=== PATIENT | female | born 1955 | race Caucasian/White ===

== ENCOUNTER 2021-03-29 16:30 | Inpatient (IN) | payer OTHER ==
[2021-03-29 17:44] VITALS: BMI 37.8
[2021-03-29] MEDS ORDERED: Heparin 25,000 units/D5W 500 ML IV SCH (19:00)
[2021-03-29] MEDS ORDERED: Nitroglycerin 0.4 MG TAB (25 Tab Bottle) SL PRN (19:53)
[2021-03-29] MEDS ORDERED: Heparin 10,000 UNITS/ 10 ML VIAL SLOW IVP SCH (20:15)
[2021-03-29] MEDS ORDERED: Heparin 25,000 units/D5W 500 ML IVPB SCH (20:15)
[2021-03-29 20:38] LABS: Hemoglobin 12.6 g/dL (12.0-15.5); Platelet Count 218 10x3/uL (150-450)
[2021-03-29 21:12] LABS: Troponin I 0.564 ng/mL (< 0.028)
[2021-03-29] MEDS ORDERED: [UNRECOGNIZED DRUG - OTHER] TOP SCH (21:15)
[2021-03-29] MEDS ORDERED: ESTRADIOL TOP SCH (21:15)
[2021-03-29] MEDS: Metoprolol Tartrate 25 MG TAB PO SCH (21:38)
[2021-03-29] MEDS: Nitroglycerin 2% Ointment 1 INCH/1 GM Packet TOP SCH (21:38)
[2021-03-29] MEDS: Atorvastatin Calcium 40 MG TAB PO SCH (21:38)
[2021-03-29] MEDS: Acetaminophen 325 MG TAB PO PRN (23:24)
[2021-03-29 23:49] LABS: Critical Call Chem Troponin I RESULT DECREASING; Troponin I 0.455 ng/mL (< 0.028)
[2021-03-30 01:50] LABS: SARS-CoV-2 PCR by NAA Not Detected (NotDetected)
[2021-03-30 02:59] LABS: #Eosinphils 0.2 10x3/uL (0.0-0.5); #Monocytes 0.8 10x3/uL (0.0-1.1); #Neutrophils 4.9 10x3/uL (1.5-8.4); %Basophils 0.4 % (0.0-2.0); %Eosinophils 1.9 % (0.0-6.0); %Lymphocytes 26.3 % (18.0-47.0); %Monocytes 9.4 % (0.0-10.0); %Neutrophils 61.6 % (40.0-75.0); Hemoglobin 11.9 g/dL (12.0-15.5); Mean Corpuscular HGB CONC 31.9 g/dL (32.0-36.0); Mean Corpuscular Hemoglobin 28.5 pg (27.0-33.0); Mean Corpuscular Volume 89.4 fl (81.6-98.3); Mean Platelet Volume 10.7 fl (7.4-10.4); Platelet Count 217 10x3/uL (150-450); RBC Distribution Width 13.2 % (11.5-14.5); Red Blood Cell (RBC) Count 4.17 10x6/uL (3.90-5.03)
[2021-03-30 03:16] LABS: Anion Gap 15 mmol/L (10-20); BUN (Urea Nitrogen) 10 mg/dL (9.8-20.1); Calc. Creatinine Clearance 130 mL/min (70-130); Calcium 8.8 mg/dL (7.8-10.44); Carbon Dioxide 25 mmol/L (23-31); Cardiac Risk 3.3 (Less than 4.5); Chloride 104 mmol/L (98-107); Cholesterol 126 mg/dl (< 200 Desired); Glucose 132 mg/dL (80-115); HDL Cholesterol 38 mg/dL (>60 Neg Risk); LDL Cholesterol, Calculated 42 mg/dL; Potassium 3.5 mmol/L (3.5-5.1); Sodium 140 mmol/L (136-145); Triglycerides 230 mg/dL (Less than 150)
[2021-03-30 03:16] LABS: Hemoglobin A1c 5.6 % (4.0-6.0)
[2021-03-30] MEDS ORDERED: Heparin 10,000 UNITS/ 10 ML VIAL ONE ×2 (04:32→06:06)
[2021-03-30] MEDS ORDERED: Magnesium Sulfate/D5W 1 GM/100 ML BAG IVPB SCH (05:30)
[2021-03-30] MEDS: Nitroglycerin 2% Ointment 1 INCH/1 GM Packet TOP SCH (05:35)
[2021-03-30] MEDS ORDERED: Aspirin Chewable 81 MG TAB ONE (05:47)
[2021-03-30] MEDS ORDERED: Nitroglycerin 50 MG/250 ML BOT 250 ML ONE (06:06)
[2021-03-30] MEDS ORDERED: Verapamil 5 MG/2 ML VIAL ONE (06:06)
[2021-03-30] MEDS ORDERED: Adenosine 6 MG/2 ML VIAL ONE (06:07)
[2021-03-30] MEDS ORDERED: Bivalirudin 250 MG VIAL ONE (06:07)
[2021-03-30] MEDS ORDERED: Lidocaine 1% PF 5 ML VIAL ONE (06:08)
[2021-03-30] MEDS ORDERED: Midazolam HCl 5 mg/5 ml Vial ONE (06:08)
[2021-03-30] MEDS ORDERED: Sodium Chloride 0.9% 1,000 ML ONE (06:08)
[2021-03-30] MEDS ORDERED: Fentanyl 100 MCG/2 ML VIAL ONE (06:08)
[2021-03-30] MEDS ORDERED: Cholecalciferol 1,000 UNITS (25 MCG) TAB PO SCH ×2 (06:15→09:00)
[2021-03-30] MEDS ORDERED: Aspirin 81 mg Enteric Coated Tablet PO SCH ×2 (06:15→09:00)
[2021-03-30] MEDS ORDERED: Multivitamin W/ Minerals 1 TAB PO SCH ×2 (06:15→09:00)
[2021-03-30] MEDS ORDERED: Ubidecarenone 50 MG CAP PO SCH ×2 (06:15→09:00)
[2021-03-30] MEDS ORDERED: Citalopram 20 MG TAB PO SCH ×2 (06:15→09:00)
[2021-03-30] MEDS ORDERED: busPIRone HCl 5 MG TAB PO SCH ×2 (06:15→09:00)
[2021-03-30] MEDS ORDERED: Potassium Chloride 10 MEQ in Premix Bag 1 BAG IVPB SCH (06:30)
[2021-03-30] MEDS ORDERED: TICAGRELOR 90 MG TABLET ONE (07:29)
[2021-03-30] MEDS ORDERED: metFORMIN XR 500 MG TAB PO SCH ×3 (08:00→18:00)
[2021-03-30] MEDS ORDERED: Sodium Chloride 0.9% 1,000 ML IV SCH (08:15)
[2021-03-30] MEDS ORDERED: Pioglitazone HCl 15 MG TAB PO SCH ×2 (09:00→13:30)
[2021-03-30] MEDS: Metoprolol Tartrate 25 MG TAB PO SCH ×2 (12:38→20:11)
[2021-03-30] MEDS: TICAGRELOR 90 MG TABLET PO SCH ×2 (12:38→20:12)
[2021-03-30] MEDS: Potassium Chloride 10 MEQ in Premix Bag 1 BAG IVPB SCH ×3 (12:58→17:02)
[2021-03-30] MEDS: Atorvastatin Calcium 40 MG TAB PO SCH (20:11)
[2021-03-30] MEDS: Acetaminophen 325 MG TAB PO PRN (20:12)
[2021-03-31 05:03] LABS: #Eosinphils 0.1 10x3/uL (0.0-0.5); #Monocytes 0.7 10x3/uL (0.0-1.1); #Neutrophils 6.3 10x3/uL (1.5-8.4); %Basophils 0.3 % (0.0-2.0); %Eosinophils 1.5 % (0.0-6.0); %Monocytes 8.2 % (0.0-10.0); %Neutrophils 79.9 % (40.0-75.0); Hemoglobin 12.5 g/dL (12.0-15.5); Mean Corpuscular HGB CONC 31.9 g/dL (32.0-36.0); Mean Corpuscular Hemoglobin 28.4 pg (27.0-33.0); Mean Corpuscular Volume 89.1 fl (81.6-98.3); Mean Platelet Volume 10.7 fl (7.4-10.4); Platelet Count 196 10x3/uL (150-450); RBC Distribution Width 13.2 % (11.5-14.5); White Blood Cell (WBC) Count 7.9 10x3/uL (3.5-10.5)
[2021-03-31 05:29] LABS: Anion Gap 14 mmol/L (10-20); BUN (Urea Nitrogen) 6 mg/dL (9.8-20.1); Calc. Creatinine Clearance 130 mL/min (70-130); Calcium 8.6 mg/dL (7.8-10.44); Carbon Dioxide 23 mmol/L (23-31); Chloride 106 mmol/L (98-107); Glucose 100 mg/dL (80-115); Magnesium 1.8 mg/dL (1.6-2.6); Potassium 4.1 mmol/L (3.5-5.1); Sodium 139 mmol/L (136-145)
[2021-03-31] MEDS ORDERED: metFORMIN XR 500 MG TAB PO SCH (08:00)
[2021-03-31] MEDS: TICAGRELOR 90 MG TABLET PO SCH (08:47)
[2021-03-31] MEDS: Metoprolol Tartrate 25 MG TAB PO SCH (08:48)
[2021-03-31 08:54] VITALS: BP 96/44; TEMP 98.7
[2021-03-31] MEDS ORDERED: Citalopram 20 MG TAB PO SCH (09:00)
[2021-03-31] MEDS ORDERED: Aspirin 81 mg Enteric Coated Tablet PO SCH (09:00)
[2021-03-31] MEDS ORDERED: Pioglitazone HCl 15 MG TAB PO SCH (09:00)
[2021-03-31] MEDS ORDERED: Multivitamin W/ Minerals 1 TAB PO SCH (09:00)
[2021-03-31] MEDS ORDERED: busPIRone HCl 5 MG TAB PO SCH (09:00)
[2021-03-31] MEDS ORDERED: Cholecalciferol 1,000 UNITS (25 MCG) TAB PO SCH (09:00)
[2021-03-31] MEDS ORDERED: Ubidecarenone 50 MG CAP PO SCH (09:00)
== END 2021-03-31 13:33 | disposition home or self-care (01) | DRG 247 ==
LOC: CSHTELE 16:30
PROVIDERS: ADMIT Specialist; ATTEND Internal Medicine
PROC: 4A023N7 Measurement of Cardiac Sampling and Pressure, Left Heart, Percutaneous Approach (ICD-10-PCS; principal; 2021-03-30)
PROC: 027034Z Dilation of Coronary Artery, One Artery with Drug-eluting Intraluminal Device, Percutaneous Approach (ICD-10-PCS; 2021-03-30)
PROC: B2161ZZ Fluoroscopy of Right and Left Heart using Low Osmolar Contrast (ICD-10-PCS; 2021-03-30)
PROC: B2111ZZ Fluoroscopy of Multiple Coronary Arteries using Low Osmolar Contrast (ICD-10-PCS; 2021-03-30)
PROC: B241ZZ3 Ultrasonography of Multiple Coronary Arteries, Intravascular (ICD-10-PCS; 2021-03-30)
DX: I21.4 Non-ST elevation (NSTEMI) myocardial infarction (principal); I25.110 Atherosclerotic heart disease of native coronary artery with unstable angina pectoris; Z20.822 Contact with and (suspected) exposure to COVID-19; F41.9 Anxiety disorder, unspecified; E11.9 Type 2 diabetes mellitus without complications; E78.5 Hyperlipidemia, unspecified; E66.9 Obesity, unspecified; Z68.37 Body mass index [BMI] 37.0-37.9, adult; Z90.49 Acquired absence of other specified parts of digestive tract; Z90.710 Acquired absence of both cervix and uterus; K21.9 Gastro-esophageal reflux disease without esophagitis; Z79.84 Long term (current) use of oral hypoglycemic drugs; Z79.82 Long term (current) use of aspirin; Z79.899 Other long term (current) drug therapy; Z80.8 Family history of malignant neoplasm of other organs or systems; Z82.49 Family history of ischemic heart disease and other diseases of the circulatory system
CPT/HCPCS: 36415; 36416; 80048; 80061; 83036; 83735; 85025; 85730; 87635; 92928; 92978; 92979; 93005; 93010; 93306; 93458; 99152; 99153; C1753; C1887; C9600; J0153; J0583; J1644; J2250; J3010; J3475; J3480; J7050; U0003; U0005